=== PATIENT | male | born 1970 | race Caucasian/White ===

== ENCOUNTER 2017-06-23 13:34 | Inpatient (IN) | payer OTHER ==
[2017-06-23 14:59] VITALS: BMI 28.9
--- NOTE | 2017-06-23 19:44 | HP ---
Admission [facility] Allergies/Adverse Reactions: Allergies Allergy/AdvReac Type Severity Reaction Status Date / Time No Known Allergies Allergy Verified 06/23/17 16:00 - Ebola screening Have you traveled outside of the country in the last 21 days: No Have you had contact with anyone from an Ebola affected area: No Have you been sick,other than usual withdrawal symptoms: Yes Do you have a fever: No Patient History - Patient Medical History Hx Anemia: No Hx Asthma: No Hx Chronic Obstructive Pulmonary Disease (COPD): No Hx Cancer: No Hx Cardiac Disorders: No Hx Congestive Heart Failure: No Hx Hypertension: No Hx Hypercholesterolemia: No Hx Pacemaker: No HX Cerebrovascular Accident: No Hx Seizures: No Hx Dementia: No Hx Diabetes: No Hx Gastrointestinal Disorders: No Hx Liver Disease: No Hx Genitourinary Disorders: No Hx Sexually Transmitted Disorders: No Hx Renal Disease (ESRD): No Hx Thyroid Disease: No Hx Human Immunodeficiency Virus (HIV): No (2012 last) Hx Hepatitis C: Yes Hx Depression: No Hx Suicide Attempt: No Hx Bipolar Disorder: No Hx Schizophrenia: No - Patient Surgical History Past Surgical History: No Hx Neurologic Surgery: No Hx Cataract Extraction: No Hx Cardiac Surgery: No Hx Lung Surgery: No Hx Breast Surgery: No Hx Breast Biopsy: No Hx Abdominal Surgery: No Hx Appendectomy: No Hx Cholecystectomy: No Hx Genitourinary Surgery: No Hx Section: No Hx Orthopedic Surgery: No Anesthesia Reaction: No - PPD History Previous Implant?: Yes Documented Results: Negative w/proof Implanted On Prior [facility] Admission?: Yes Date: 08/03/13 Results: 0 mm - Smoking Cessation Smoking history: Current every day smoker Have you smoked in the past 12 months: Yes Aproximately how many cigarettes per day: 10 Cigars Per Day: 0 Hx Chewing Tobacco Use: No - Substances Abused Heroin Route: Injection Frequency: Daily Amount used: 10 bags Age of first use: 30 Date of Last Use: 06/23/17 Alcohol-sana/wine Route: Oral Frequency: Daily Amount used: 1 pt. Age of first use: 19 Date of Last Use: 06/22/17 Marijuana Route: Smoking Frequency: 1-2 times per week Amount used: $10 Age of first use: 13 Date of Last Use: 06/09/17 Family Disease History - Family Disease History Family Disease History: Other: Father (alcohol,) Admission Physical Exam BHS - Vital Signs Vital Signs: Vital Signs - 24 hr 06/23/17 06/23/17 14:43 17:17 Temperature 97.7 F 97.9 F Pulse Rate 57 L 86 Respiratory 18 20 Rate Blood Pressure 133/85 129/76 BHS Breath Alcohol Content Breath Alcohol Content: 0 Urine Drug Screen - Results Drug Screen Negative: No Urine Drug Screen Results: THC-Marijuana, OPI-Opiates, OXY-Oxycodone
--- NOTE | 2017-06-23 20:16 | HP ---
COWS - Scale Resting Pulse: 0= [place] 80 or Below Sweatin=Flushed/Facial Moisture Restless Observation: 5= Unable to Sit Still Pupil Size: 1= Pupils >than Normal Bone or Joint Aches: 1= Mild Discomfort Runny Nose/ Eye Tearin= Nasal Congestion GI Upset > 30mins: 2= Nausea/Diarrhea Tremor Observation: 1= Tremor [place], Not Seen Yawning Observation: 0= None Anxiety or Irritability: 2=Irritable/Anxious Goose Flesh Skin: 0=Smooth Skin COWS Score: 15 CIWA Score - CIWA Score Nausea/Vomitin-Mild Nausea/No Vomiting Muscle Tremors: 3 Anxiety: 4-Mod. Anxious/Guarded Agitation: 4-Moderately Restless Paroxysmal Sweats: 3 Orientation: 0-Oriented Tacttile Disturbances: 2-Mild Itch/Numbness/Burn Auditory Disturbances: 0-None Visual Disturbances: 0-None Headache: 0-None Present CIWA-Ar Total Score: 17 Admission ROS BHS - HPI Chief Complaint: C/O WITHDRAWAL SX'S. SEEKING DETOX TXMENT Allergies/Adverse Reactions: Allergies Allergy/AdvReac Type Severity Reaction Status Date / Time No Known Allergies Allergy Verified 06/23/17 16:00 History of Present Illness: 47 Y.O. MALE WITH ALCOHOLISM AND OPIOID DEPENDENCE HERE FOR DETOX. CLIENT IS KNOWN TO THIS PROGRAM. LAST DETOX 4 YEARS AGO. SELF REFERRED. REPORTS LONGEST CLEAN TIME 1 YEAR Exam Limitations: No Limitations - Ebola screening Have you traveled outside of the country in the last 21 days: No Have you had contact with anyone from an Ebola affected area: No Have you been sick,other than usual withdrawal symptoms: Yes Do you have a fever: No - Review of Systems Constitutional: Chills, Loss of Appetite, Malaise, Night Sweats, Changes in sleep EENT: reports: Nose Congestion Respiratory: reports: No Symptoms reported Cardiac: reports: No Symptoms Reported GI: reports: Nausea, Poor Appetite, Poor Fluid Intake : reports: No Symptoms Reported Musculoskeletal: reports: Joint Pain Integumentary: reports: No Symptoms Reported Neuro: reports: No Symptoms reported Endocrine: reports: No Symptoms Reported Hematology: reports: No Symptoms Reported Psychiatric: reports: Anxious Other Systems: Reviewed and Negative Patient History - Patient Medical History Hx Anemia: No Hx Asthma: No Hx Chronic Obstructive Pulmonary Disease (COPD): No Hx Cancer: No Hx Cardiac Disorders: No Hx Congestive Heart Failure: No Hx Hypertension: No Hx Hypercholesterolemia: No Hx Pacemaker: No HX Cerebrovascular Accident: No Hx Seizures: No Hx Dementia: No Hx Diabetes: No Hx Gastrointestinal Disorders: No Hx Liver Disease: No Hx Genitourinary Disorders: No Hx Sexually Transmitted Disorders: No Hx Renal Disease (ESRD): No Hx Thyroid Disease: No Hx Human Immunodeficiency Virus (HIV): No Hx Hepatitis C: Yes (NO TXMENT) Hx Depression: No Hx Suicide Attempt: No Hx Bipolar Disorder: No Hx Schizophrenia: No Other Medical History: FEELS DEPRESSED DENIES SI/HI - Patient Surgical History Past Surgical History: No Hx Neurologic Surgery: No Hx Cataract Extraction: No Hx Cardiac Surgery: No Hx Lung Surgery: No Hx Breast Surgery: No Hx Breast Biopsy: No Hx Abdominal Surgery: No Hx Appendectomy: No Hx Cholecystectomy: No Hx Genitourinary Surgery: No Hx Section: No Hx Orthopedic Surgery: No Anesthesia Reaction: No - PPD History Previous Implant?: Yes Documented Results: Negative w/proof Implanted On Prior [facility] Admission?: Yes Date: 08/03/13 Results: 0 mm PPD to be Administered?: Yes - Smoking Cessation Smoking history: Current every day smoker Have you smoked in the past 12 months: Yes Aproximately how many cigarettes per day: 2 Cigars Per Day: 0 Hx Chewing Tobacco Use: No Initiated information on smoking cessation: Yes 'Breaking Loose' booklet given: 06/23/17 - Substance & Tx. History Hx Alcohol Use: Yes Hx Substance Use: Yes Substance Use Type: Alcohol, Heroin, Marijuana Hx Substance Use Treatment: Yes ([facility]) - Substances Abused Heroin Route: Injection Frequency: Daily Amount used: 10 bags Age of first use: 30 Date of Last Use: 06/23/17 Alcohol-sana/wine Route: Oral Frequency: Daily Amount used: 1 pt. Age of first use: 19 Date of Last Use: 06/22/17 Marijuana Route: Smoking Frequency: 1-2 times per week Amount used: $10 Age of first use: 13 Date of Last Use: 06/09/17 Family Disease History - Family Disease History Family Disease History: Other: Father (alcohol,) Admission Physical Exam BHS - Vital Signs Vital Signs: Vital Signs - 24 hr 06/23/17 06/23/17 14:43 17:17 Temperature 97.7 F 97.9 F Pulse Rate 57 L 86 Respiratory 18 20 Rate Blood Pressure 133/85 129/76 - Physical General Appearance: Yes: Appropriately Dressed, Mild Distress, Tremorous, Anxious HEENTM: Yes: EOMI, Normocephalic, Normal Voice, YADIEL, Pharynx Normal, Nasal Congestion Respiratory: Yes: Chest Non-Tender, Lungs Clear, Normal Breath Sounds, No Respiratory Distress, No Accessory Muscle Use Neck: Yes: No masses,lesions,Nodules, Supple, Trachea in good position Breast: Yes: Breast Exam Deferred Cardiology: Yes: Regular Rhythm, Regular Rate, S1, S2 Abdominal: Yes: Normal Bowel Sounds, Non Tender, Soft Genitourinary: Yes: Within Normal Limits Back: Yes: Normal Inspection Musculoskeletal: Yes: full range of Motion, Gait Steady Extremities: Yes: Normal Capillary Refill, Normal Range of Motion, Non-Tender, Tremors Neurological: Yes: estimation manager II-XII NML intact, Fully Oriented, Alert, Motor Strength 5/5 Integumentary: Yes: Normal Color, Dry, Warm Lymphatic: Yes: Within Normal Limits - Diagnostic (1) Alcohol dependence with uncomplicated withdrawal Current Visit: Yes Status: Chronic (2) Opioid dependence with withdrawal Current Visit: Yes Status: Chronic (3) Cannabis dependence, uncomplicated Current Visit: Yes Status: Chronic (4) Nicotine dependence Current Visit: Yes Status: Chronic Qualifiers: Nicotine product type: cigarettes Substance use status: uncomplicated Qualified Code(s): F17.210 - Nicotine dependence, cigarettes, uncomplicated (5) Hep C w/o coma, chronic Current Visit: Yes Status: Chronic Cleared for Admission [facility] - Detox or Rehab [facility] Level of Care: Medically Managed Detox Regimen/Protocol: Methadone/Librium [facility] Breath Alcohol Content Breath Alcohol Content: 0 Urine Drug Screen - Results Drug Screen Negative: No Urine Drug Screen Results: THC-Marijuana, OPI-Opiates, OXY-Oxycodone
[2017-06-23] MEDS ORDERED: P-EPHED 60MG/TRIPROLIDI 2.5MG TABLET PO PRN (20:22)
[2017-06-23] MEDS ORDERED: MAGNESIUM CITRATE 300 ML BOTTLE PO PRN (20:22)
[2017-06-23] MEDS ORDERED: METHADONE HCL 10 MG TABLET (FOR DETOX USE ONLY) PO ONE ×2 (20:22→23:00)
[2017-06-23] MEDS ORDERED: MENTHOL/PHENOL 1 EACH UD MM PRN (20:22)
[2017-06-23] MEDS ORDERED: hydrOXYzine PAMOATE 50 MG CAPSULE (FP) PO PRN (20:22)
[2017-06-23] MEDS ORDERED: LOPERAMIDE HCL 2 MG CAPSULE PO PRN (20:22)
[2017-06-23] MEDS ORDERED: guaiFENesin/D-METHORPHAN HB 10 ML UNIT-DOSE CUPS PO PRN (20:22)
[2017-06-23] MEDS ORDERED: chlordiazePOXIDE HCL 25 MG CAPSULE PO PRN (20:22)
[2017-06-23] MEDS ORDERED: NICOTINE POLACRILEX 2 MG GUM BC PRN (20:22)
[2017-06-23] MEDS ORDERED: MAGNESIUM HYDROX 2400MG/30ML ORAL SUSPENSION 30 ML CUP PO PRN (20:22)
[2017-06-23] MEDS ORDERED: ACETAMINOPHEN 325 MG TABLET (FP) PO PRN (20:22)
[2017-06-23] MEDS ORDERED: IBUPROFEN 400 MG TABLET (FP) PO PRN (20:22)
[2017-06-23] MEDS ORDERED: MAG HYDROX/AL HYDROX/SIMETH 30 ML UNIT-DOSE CUP PO PRN (20:22)
[2017-06-23] MEDS: THIAMINE HCL 100 MG TABLET (FP) PO SCH (21:24)
[2017-06-23] MEDS: chlordiazePOXIDE HCL 25 MG CAPSULE PO SCH (23:22)
[2017-06-24 04:53] LABS: URINE APPEARANCE CLEAR; URINE BILIRUBIN NEGATIVE (NEGATIVE); URINE BLOOD NEGATIVE (NEGATIVE); URINE COLOR YELLOW; URINE GLUCOSE (UA) NEGATIVE (NEGATIVE); URINE KETONE NEGATIVE (NEGATIVE); URINE LEUK ESTERASE NEGATIVE (NEGATIVE); URINE NITRITE NEGATIVE (NEGATIVE); URINE PROTEIN NEGATIVE (NEGATIVE); URINE UROBILINOGEN NEGATIVE mg/dL (0.2-1.0)
[2017-06-24] MEDS: chlordiazePOXIDE HCL 25 MG CAPSULE PO SCH ×4 (05:16→22:07)
[2017-06-24] MEDS ORDERED: METHADONE HCL 10 MG TABLET (FOR DETOX USE ONLY) PO SCH (10:00)
[2017-06-24] MEDS: PRENATAL VITAMINS W/ FOLIC ACID TABLET (FP) PO SCH (10:16)
[2017-06-24 10:17] LABS: HEMATOCRIT 46.1 % (35.4-49); HEMOGLOBIN 15.1 GM/dL (11.7-16.9); MCHC 32.6 g/dl (32.0-35.9); MEAN PLT VOLUME 7.9 fl (7.5-11.1); PLATELET COUNT 268 K/MM3 (134-434); RBC 4.71 M/mm3 (4.00-5.60); RDW 13.5 % (11.9-15.9); WHITE BLOOD COUNT 7.6 K/mm3 (4.0-10.0)
[2017-06-24] MEDS: NICOTINE 14 MG/24 HOURS TOPICAL PATCH TD SCH (10:18)
[2017-06-24 10:20] LABS: CHLORIDE 106 mmol/L (98-107); POTASSIUM 4.3 mmol/L (3.5-5.1); SODIUM 140 mmol/L (136-145)
[2017-06-24 10:34] LABS: ALBUMIN 3.6 g/dl (3.4-5.0); ALK PHOS 76 U/L (45-117); ANION GAP 5 (8-16); BILIRUBIN,TOTAL 0.7 mg/dL (0.2-1.0); BLOOD UREA NITROGEN 11 mg/dL (7-18); CALCIUM 8.9 mg/dL (8.5-10.1); CO2 29 mmol/L (21-32); CREATININE 0.9 mg/dL (0.7-1.3); GLUCOSE,RANDOM 93 mg/dL (74-106); SGOT/AST 15 U/L (15-37); SGPT/ALT 23 U/L (12-78); TOT PROT 6.5 g/dl (6.4-8.2)
--- NOTE | 2017-06-24 11:26 | EKG ---
Test Reason : Blood Pressure : / mmHG Vent. Rate : 054 BPM Atrial Rate : 054 BPM P-R Int : 124 ms QRS Dur : 098 ms QT Int : 414 ms P-R-T Axes : 059 066 051 degrees QTc Int : 392 ms SINUS BRADYCARDIA OTHERWISE NORMAL ECG NO PREVIOUS ECGS AVAILABLE Confirmed by KRISTYN COX, JOHANNA ([id number]) on 06/24/2017 11:26:39 AM Referred By: Confirmed By:JOHANNA SIMONS MD
--- NOTE | 2017-06-24 12:50 | PN ---
[facility] CIWA - CIWA Score Nausea/Vomitin-Mild Nausea/No Vomiting Muscle Tremors: 2 Anxiety: 2 Agitation: 2 Paroxysmal Sweats: 2 Orientation: 0-Oriented Tacttile Disturbances: 0-None Auditory Disturbances: 0-None Visual Disturbances: 0-None Headache: 0-None Present CIWA-Ar Total Score: 9 S COWS - Scale Resting Pulse: 0= [place] 80 or Below Sweatin=Flushed/Facial Moisture Restless Observation: 1= Difficult to Sit Still Pupil Size: 1= Pupils >than Normal Bone or Joint Aches: 1= Mild Discomfort Runny Nose/ Eye Tearin= Runny Nose/Eyes GI Upset > 30mins: 1= Stomach Cramp Tremor Observation of Outstretched Hands: 1= Tremor [place], Not Seen Yawning Observation: 0= None Anxiety or Irritability: 2=Irritable/Anxious Goose Flesh Skin: 0=Smooth Skin COWS Score: 11 S Progress Note (SOAP) Subjective: Sweating, midly anxious, withdrawal sx Objective: 06/24/17 12:53 In bed, no acute distress, slight anxiety/agitation Vital Signs Temperature 96.8 F L 06/24/17 10:00 Pulse Rate 77 06/24/17 10:00 Respiratory Rate 18 06/24/17 10:00 Blood Pressure 112/76 06/24/17 10:00 O2 Sat by Pulse Oximetry (%) Laboratory Last Values WBC 7.6 K/mm3 (4.0-10.0) 06/24/17 08:00 RBC 4.71 M/mm3 (4.00-5.60) 06/24/17 08:00 Hgb 15.1 GM/dL (11.7-16.9) 06/24/17 08:00 Hct 46.1 % (35.4-49) 06/24/17 08:00 MCV 98.0 fl (80-96) H 06/24/17 08:00 MCH 32.0 pg (25.7-33.7) 06/24/17 08:00 MCHC 32.6 g/dl (32.0-35.9) 06/24/17 08:00 RDW 13.5 % (11.9-15.9) 06/24/17 08:00 Plt Count 268 K/MM3 (134-434) D 06/24/17 08:00 MPV 7.9 fl (7.5-11.1) 06/24/17 08:00 Sodium 140 mmol/L (136-145) 06/24/17 08:00 Potassium 4.3 mmol/L (3.5-5.1) 06/24/17 08:00 Chloride 106 mmol/L (98-107) 06/24/17 08:00 Carbon Dioxide 29 mmol/L (21-32) D 06/24/17 08:00 Anion Gap 5 (8-16) L 06/24/17 08:00 BUN 11 mg/dL (7-18) 06/24/17 08:00 Creatinine 0.9 mg/dL (0.7-1.3) D 06/24/17 08:00 Creat Clearance w eGFR > 60 (>60) 06/24/17 08:00 Random Glucose 93 mg/dL (74-106) 06/24/17 08:00 Calcium 8.9 mg/dL (8.5-10.1) 06/24/17 08:00 Total Bilirubin 0.7 mg/dL (0.2-1.0) D 06/24/17 08:00 AST 15 U/L (15-37) 06/24/17 08:00 ALT 23 U/L (12-78) 06/24/17 08:00 Alkaline Phosphatase 76 U/L (45-117) 06/24/17 08:00 Total Protein 6.5 g/dl (6.4-8.2) 06/24/17 08:00 Albumin 3.6 g/dl (3.4-5.0) 06/24/17 08:00 Urine Color Yellow 06/24/17 04:35 Urine Appearance Clear 06/24/17 04:35 Urine pH 6.0 (5.0-8.0) 06/24/17 04:35 Ur Specific [place] 1.018 (1.001-1.035) 06/24/17 04:35 Urine Protein Negative (NEGATIVE) 06/24/17 04:35 Urine Glucose (UA) Negative (NEGATIVE) 06/24/17 04:35 Urine Ketones Negative (NEGATIVE) 06/24/17 04:35 Urine Blood Negative (NEGATIVE) 06/24/17 04:35 Urine Nitrite Negative (NEGATIVE) 06/24/17 04:35 Urine Bilirubin Negative (NEGATIVE) 06/24/17 04:35 Urine Urobilinogen Negative mg/dL (0.2-1.0) 06/24/17 04:35 Ur Leukocyte Esterase Negative (NEGATIVE) 06/24/17 04:35 RPR Titer Nonreactive (NONREACTIVE) 06/24/17 08:00 Labs noted Assessment: 06/24/17 12:56 Withdrawal sx Plan: Continue detox
--- NOTE | 2017-06-24 16:49 | CONSULT ---
[facility] Psychiatric Consult - Data Date of interview: 06/24/17 Admission source: [facility] Identifying data: Readmission to [facility] for this 47 y/o male seeking detox treatment on for alcohol,heroin and cannabis dependence.Patient is in a 18-year common-law relationship,father of two, domiciled,currently unemployed and supported by friends/relatives. Substance Abuse History: Patient confirms continuous use of heroin,cannabis and alcohol.See current [facility] report for details : Smoking history: Current every day smoker. Have you smoked in the past 12 months: Yes. Aproximately how many cigarettes per day: 2. Cigars Per Day: 0. Hx Chewing Tobacco Use: No. Initiated information on smoking cessation: Yes. 'Breaking Loose' booklet given : 06/23/17. - Substance & Tx. History. Hx Alcohol Use: Yes. Hx Substance Use : Yes. Substance Use Type: Alcohol, Heroin, Marijuana. Hx Substance Use Treatment: Yes ([facility] - Substances Abused. Heroin. Route: Injection. Frequency: Daily. Amount used: 10 bags. Age of first use: 30. Date of Last Use: 06/23/17. Alcohol-sana/wine. Route: Oral. Frequency: Daily. Amount used: 1 pt. Age of first use: 19. Date of Last Use: 06/22/17. Marijuana. Route: Smoking. Frequency: 1-2 times per week. Amount used: $10. Age of first use: 13. Date of Last Use: 06/09/17 Medical History: Hepatitis C. Psychiatric History: Patient denies. Physical/Sexual Abuse/Trauma History: Patient denies. Additional Comment: Urine Drug Screen Results: THC-Marijuana, OPI-Opiates, OXY- Oxycodone.Noted. Mental Status Exam - Mental Status Exam Alert and Oriented to: Time, Place, Person Cognitive Function: Good Patient Appearance: Well Groomed Mood: Hopeful, Euthymic Affect: Appropriate, Normal Range Patient Behavior: Appropriate, Cooperative Speech Pattern: Clear, Appropriate Voice Loudness: Normal Thought Process: Intact, Goal Oriented Thought Disorder: Not Present Hallucinations: Denies Suicidal Ideation: Denies Homicidal Ideation: Denies Insight/Judgement: Poor Sleep: Poorly, Difficulty falling asleep Appetite: Good Muscle strength/Tone: Normal Gait/Station: Normal Psychiatric Findings - Problem List ([place] 1, 2,3) (1) Alcohol dependence with uncomplicated withdrawal Current Visit: Yes Status: Acute (2) Opioid dependence with withdrawal Current Visit: Yes Status: Acute (3) Cannabis dependence, uncomplicated Current Visit: Yes Status: Acute (4) Nicotine dependence Current Visit: Yes Status: Acute Qualifiers: Nicotine product type: cigarettes Substance use status: uncomplicated Qualified Code(s): F17.210 - Nicotine dependence, cigarettes, uncomplicated (5) Insomnia Current Visit: Yes Status: Acute - Initial Treatment Plan Initial Treatment Plan: Psychoeducation and support.Sleep hygiene.Detoxification in effect.Ambien 10 mg po hs prn.patient is made aware of potential for parasomnias.Mr Wisdom consents (verbally) to follow this careplan.Observation.
[2017-06-24] MEDS: THIAMINE HCL 100 MG TABLET (FP) PO SCH (22:07)
[2017-06-24] MEDS: ZOLPIDEM TARTRATE 10 MG TABLET (PARK CARE ONLY) PO PRN (22:07)
[2017-06-25] MEDS: chlordiazePOXIDE HCL 25 MG CAPSULE PO SCH ×3 (05:33→17:53)
[2017-06-25] MEDS ORDERED: METHADONE HCL 5 MG TABLET (FOR DETOX USE ONLY) PO SCH (10:00)
[2017-06-25] MEDS: PRENATAL VITAMINS W/ FOLIC ACID TABLET (FP) PO SCH (10:10)
[2017-06-25] MEDS: NICOTINE 14 MG/24 HOURS TOPICAL PATCH TD SCH (10:12)
--- NOTE | 2017-06-25 13:38 | PN ---
[facility] CIWA - CIWA Score Nausea/Vomitin Muscle Tremors: 3 Anxiety: 3 Agitation: 3 Paroxysmal Sweats: 1-Minimal Palms Moist Orientation: 0-Oriented Tacttile Disturbances: 0-None Auditory Disturbances: 0-None Visual Disturbances: 0-None Headache: 0-None Present CIWA-Ar Total Score: 12 S COWS - Scale Resting Pulse: 1= [place] 81-100 Sweatin=Flushed/Facial Moisture Restless Observation: 0= Sits Still Pupil Size: 0= Normal to Room Light Bone or Joint Aches: 1= Mild Discomfort Runny Nose/ Eye Tearin= Nasal Congestion GI Upset > 30mins: 0= None Tremor Observation of Outstretched Hands: 2= Slight Tremor Visible Yawning Observation: 0= None Anxiety or Irritability: 2=Irritable/Anxious Goose Flesh Skin: 0=Smooth Skin COWS Score: 9 [facility] Progress Note (SOAP) Subjective: withdrawal sx tremors, night sweats Objective: 06/25/17 13:36 Vital Signs Temperature 97.0 F L 06/25/17 09:36 Pulse Rate 87 06/25/17 09:36 Respiratory Rate 18 06/25/17 09:36 Blood Pressure 109/69 06/25/17 09:36 O2 Sat by Pulse Oximetry (%) Laboratory Last Values WBC 7.6 K/mm3 (4.0-10.0) 06/24/17 08:00 RBC 4.71 M/mm3 (4.00-5.60) 06/24/17 08:00 Hgb 15.1 GM/dL (11.7-16.9) 06/24/17 08:00 Hct 46.1 % (35.4-49) 06/24/17 08:00 MCV 98.0 fl (80-96) H 06/24/17 08:00 MCH 32.0 pg (25.7-33.7) 06/24/17 08:00 MCHC 32.6 g/dl (32.0-35.9) 06/24/17 08:00 RDW 13.5 % (11.9-15.9) 06/24/17 08:00 Plt Count 268 K/MM3 (134-434) D 06/24/17 08:00 MPV 7.9 fl (7.5-11.1) 06/24/17 08:00 Sodium 140 mmol/L (136-145) 06/24/17 08:00 Potassium 4.3 mmol/L (3.5-5.1) 06/24/17 08:00 Chloride 106 mmol/L (98-107) 06/24/17 08:00 Carbon Dioxide 29 mmol/L (21-32) D 06/24/17 08:00 Anion Gap 5 (8-16) L 06/24/17 08:00 BUN 11 mg/dL (7-18) 06/24/17 08:00 Creatinine 0.9 mg/dL (0.7-1.3) D 06/24/17 08:00 Creat Clearance w eGFR > 60 (>60) 06/24/17 08:00 Random Glucose 93 mg/dL (74-106) 06/24/17 08:00 Calcium 8.9 mg/dL (8.5-10.1) 06/24/17 08:00 Total Bilirubin 0.7 mg/dL (0.2-1.0) D 06/24/17 08:00 AST 15 U/L (15-37) 06/24/17 08:00 ALT 23 U/L (12-78) 06/24/17 08:00 Alkaline Phosphatase 76 U/L (45-117) 06/24/17 08:00 Total Protein 6.5 g/dl (6.4-8.2) 06/24/17 08:00 Albumin 3.6 g/dl (3.4-5.0) 06/24/17 08:00 Urine Color Yellow 06/24/17 04:35 Urine Appearance Clear 06/24/17 04:35 Urine pH 6.0 (5.0-8.0) 06/24/17 04:35 Ur Specific [place] 1.018 (1.001-1.035) 06/24/17 04:35 Urine Protein Negative (NEGATIVE) 06/24/17 04:35 Urine Glucose (UA) Negative (NEGATIVE) 06/24/17 04:35 Urine Ketones Negative (NEGATIVE) 06/24/17 04:35 Urine Blood Negative (NEGATIVE) 06/24/17 04:35 Urine Nitrite Negative (NEGATIVE) 06/24/17 04:35 Urine Bilirubin Negative (NEGATIVE) 06/24/17 04:35 Urine Urobilinogen Negative mg/dL (0.2-1.0) 06/24/17 04:35 Ur Leukocyte Esterase Negative (NEGATIVE) 06/24/17 04:35 RPR Titer Nonreactive (NONREACTIVE) 06/24/17 08:00 labs noted Assessment: 06/25/17 13:37 withdrawal sx Not in acute distress Plan: continue detox
[2017-06-25] MEDS: THIAMINE HCL 100 MG TABLET (FP) PO SCH (22:05)
[2017-06-25] MEDS: ZOLPIDEM TARTRATE 10 MG TABLET (PARK CARE ONLY) PO PRN (22:05)
[2017-06-25] MEDS: chlordiazePOXIDE 5 MG CAPSULE PO SCH (22:05)
[2017-06-26] MEDS: chlordiazePOXIDE 5 MG CAPSULE PO SCH (05:37)
[2017-06-26 06:29] VITALS: BP 94/75; PULSE 73; TEMP 97.7
--- NOTE | 2017-06-26 09:17 | PN ---
[facility] Progress Note (SOAP) Subjective: ALERT,IRRITABLE,ANXIOUS,INTERRUPTED SLEEP,PAIN IN THE BODY AND BACK Objective: 06/26/17 09:16 Vital Signs Temperature 97.7 F 06/26/17 06:00 Pulse Rate 73 06/26/17 06:00 Respiratory Rate 18 06/26/17 06:00 Blood Pressure 94/75 06/26/17 06:00 O2 Sat by Pulse Oximetry (%) 06/26/17 09:16 Laboratory Last Values WBC 7.6 K/mm3 (4.0-10.0) 06/24/17 08:00 RBC 4.71 M/mm3 (4.00-5.60) 06/24/17 08:00 Hgb 15.1 GM/dL (11.7-16.9) 06/24/17 08:00 Hct 46.1 % (35.4-49) 06/24/17 08:00 MCV 98.0 fl (80-96) H 06/24/17 08:00 MCH 32.0 pg (25.7-33.7) 06/24/17 08:00 MCHC 32.6 g/dl (32.0-35.9) 06/24/17 08:00 RDW 13.5 % (11.9-15.9) 06/24/17 08:00 Plt Count 268 K/MM3 (134-434) D 06/24/17 08:00 MPV 7.9 fl (7.5-11.1) 06/24/17 08:00 Sodium 140 mmol/L (136-145) 06/24/17 08:00 Potassium 4.3 mmol/L (3.5-5.1) 06/24/17 08:00 Chloride 106 mmol/L (98-107) 06/24/17 08:00 Carbon Dioxide 29 mmol/L (21-32) D 06/24/17 08:00 Anion Gap 5 (8-16) L 06/24/17 08:00 BUN 11 mg/dL (7-18) 06/24/17 08:00 Creatinine 0.9 mg/dL (0.7-1.3) D 06/24/17 08:00 Creat Clearance w eGFR > 60 (>60) 06/24/17 08:00 Random Glucose 93 mg/dL (74-106) 06/24/17 08:00 Calcium 8.9 mg/dL (8.5-10.1) 06/24/17 08:00 Total Bilirubin 0.7 mg/dL (0.2-1.0) D 06/24/17 08:00 AST 15 U/L (15-37) 06/24/17 08:00 ALT 23 U/L (12-78) 06/24/17 08:00 Alkaline Phosphatase 76 U/L (45-117) 06/24/17 08:00 Total Protein 6.5 g/dl (6.4-8.2) 06/24/17 08:00 Albumin 3.6 g/dl (3.4-5.0) 06/24/17 08:00 Urine Color Yellow 06/24/17 04:35 Urine Appearance Clear 06/24/17 04:35 Urine pH 6.0 (5.0-8.0) 06/24/17 04:35 Ur Specific [place] 1.018 (1.001-1.035) 06/24/17 04:35 Urine Protein Negative (NEGATIVE) 06/24/17 04:35 Urine Glucose (UA) Negative (NEGATIVE) 06/24/17 04:35 Urine Ketones Negative (NEGATIVE) 06/24/17 04:35 Urine Blood Negative (NEGATIVE) 06/24/17 04:35 Urine Nitrite Negative (NEGATIVE) 06/24/17 04:35 Urine Bilirubin Negative (NEGATIVE) 06/24/17 04:35 Urine Urobilinogen Negative mg/dL (0.2-1.0) 06/24/17 04:35 Ur Leukocyte Esterase Negative (NEGATIVE) 06/24/17 04:35 RPR Titer Nonreactive (NONREACTIVE) 06/24/17 08:00 Assessment: 06/26/17 09:16 WITHDRAWAL SYMPTOM Plan: CONTINUE DETOX
--- NOTE | 2017-06-26 09:18 | PN ---
S Progress Note Note: PATIENT DID NOT WANT TO COMPLETE TREATMENT,SIGNED RELEASE AMA,SEEN BY COUNSELOR
--- NOTE | 2017-06-26 09:21 | DS ---
[facility] Detox Discharge Summary Admission Date: 06/23/17 Discharge Date: 06/26/17 - History Present History: Alcohol Dependence, Cannabis Dependence, Opioid Dependence Additional Comments: PATIENT SIGNED RELEASE AMA,DID NOT WANT TO COMPLETE TREATMENT,SEEN BY COUNSELOR - Physical Exam Results Vital Signs: Vital Signs Temperature 97.7 F 06/26/17 06:00 Pulse Rate 73 06/26/17 06:00 Respiratory Rate 18 06/26/17 06:00 Blood Pressure 94/75 06/26/17 06:00 O2 Sat by Pulse Oximetry (%) Pertinent Admission Physical Exam Findings: WITHDRAWAL SYMPTOM - Medication Discharge Medications: Ambulatory Orders NK [No Known Home Medication] 08/01/13 - Diagnosis (1) Opioid dependence with withdrawal Current Visit: Yes Status: Acute (2) Hepatitis C Current Visit: Yes Status: Acute (3) Alcohol dependence with uncomplicated withdrawal Current Visit: Yes Status: Acute (4) Cannabis dependence, uncomplicated Current Visit: Yes Status: Acute (5) Nicotine dependence Current Visit: Yes Status: Acute Qualifiers: Nicotine product type: cigarettes Substance use status: uncomplicated Qualified Code(s): F17.210 - Nicotine dependence, cigarettes, uncomplicated - AMA Did Patient Leave Against Medical Advice: Yes
[2017-06-26] MEDS ORDERED: chlordiazePOXIDE HCL 10 MG CAPSULE PO SCH (23:00)
[2017-06-27] MEDS ORDERED: METHADONE HCL 10 MG TABLET (FOR DETOX USE ONLY) PO SCH (10:00)
[2017-06-28] MEDS ORDERED: METHADONE HCL 5 MG TABLET (FOR DETOX USE ONLY) PO SCH (06:00)
== END 2017-06-26 09:29 | disposition left against medical advice (07) | DRG 770 ==
LOC: YASAS 13:34 → Y6N 16:37
PROVIDERS: ADMIT Internal Medicine; ATTEND Internal Medicine
PROC: HZ2ZZZZ Detoxification Services for Substance Abuse Treatment (ICD-10-PCS; principal; 2017-06-23)
DX: F11.23 Opioid dependence with withdrawal (principal); F10.230 Alcohol dependence with withdrawal, uncomplicated; F12.20 Cannabis dependence, uncomplicated; F17.210 Nicotine dependence, cigarettes, uncomplicated; G47.00 Insomnia, unspecified; B18.2 Chronic viral hepatitis C
CPT/HCPCS: 36415; 80053; 81003; 85027; 86593; 93005; 93010

== ENCOUNTER 2020-02-28 09:31 | Emergency (ER) | payer OTHER ==
[2020-02-28 09:37] VITALS: BP 138/86; PULSE 66; TEMP 98.2; BMI 27.9
[2020-02-28] MEDS ORDERED: TETRACAINE 0.5% OPHTH SOLN 2 ML BOTTLE ONE (10:52)
--- NOTE | 2020-02-28 10:58 | PDOC ---
History of Present Illness - General Chief Complaint: Eye Problem Stated Complaint: RT EYE PAIN (IRRITATION) Time Seen by Provider: 02/28/20 10:40 History Source: Patient Past History - Medical History Allergies/Adverse Reactions: Allergies Allergy/AdvReac Type Severity Reaction Status Date / Time No Known Allergies Allergy Verified 02/28/20 09:34 Home Medications: Ambulatory Orders Erythromycin 0.5% Eye Ointment [Erythromycin 0.5% Eye Ointment -] 0.5 inch OD ASDIR #1 tube 02/28/20 Anemia: No Asthma: No Cancer: No Cardiac Disorders: No CVA: No COPD: No CHF: No Dementia: No Diabetes: No GI Disorders: No Disorders: No HTN: No Hypercholesterolemia: No Kidney Stones: No Liver Disease: No Seizures: No Thyroid Disease: No - Surgical History Abdominal Surgery: No Appendectomy: No Cardiac Surgery: No Cholecystectomy: No Lung Surgery: No Neurologic Surgery: No Orthopedic Surgery: No - Reproductive History Testicular Surgery: No - Immunization History Immunization Up to Date: No - Psycho-Social/Smoking History Smoking History: Never smoked Have you smoked in the past 12 months: Yes Number of Cigarettes Smoked Daily: 2 Cigars Per Day: 0 'Breaking Loose' booklet given: 06/23/17 - Substance Abuse Hx (Audit-C & DAST Scrn) How often the patient has a drink containing alcohol: Never Score: In Men: 4 or > Positive; In Women: 3 or > Positive: 0 Screen Result (Pos requires Nsg. Audit-10AR): Negative In the last yr the pt used illegal drug/Rx for NonMed reason: No Score: Yes response is considered Positive: 0 Screen Result (Positive result requires Nsg. DAST-10): Negative Review of Systems - Review of Systems HEENTM: No: Eye Pain, Blurred Vision, Tearing *Physical Exam - Vital Signs Last Vital Signs Temp Pulse Resp BP Pulse Ox 98.2 F 66 18 138/86 100 02/28/20 09:35 02/28/20 09:35 02/28/20 09:35 02/28/20 09:35 02/28/20 09:35 - Physical Exam General Appearance: Yes: Appropriately Dressed. No: Apparent Distress HEENT: positive: Normal Voice, Other (conjunc clear w/ no gross fb on lid eversion, no tearing, ~1-2mm uptake in the 11 0' clock position on garrido lamp) Neck: positive: Supple Respiratory/Chest: negative: Respiratory Distress Integumentary: positive: Dry, Warm Neurologic: positive: Fully Oriented, Alert, Normal Mood/Affect Medical Decision Making - Medical Decision Making 02/28/20 12:20 50-year-old male, here with foreign body sensation to his R eye after repairing roof at home last night. States he was wearing goggles but somehow debris from roof still got into his R eye. Has since flushed and used Visine and reports that over the past several hours he has not had any foreign body sensation. Denies eye pain, photophobia, tearing or visual changes. see exam FB to R eye Since resolved No fb on lid eversion Has ~1-2mm uptake on garrido lamp Dc w/ top abx Tetanus UTD 02/28/20 12:24 Discharge - Discharge Information Problems reviewed: Yes Clinical Impression/Diagnosis: Foreign body, eye Qualifiers: Encounter type: initial encounter Laterality: right Qualified Code(s): T15.91XA - Foreign body on external eye, part unspecified, right eye, initial encounter Condition: Good Disposition: HOME - Additional Discharge Information Prescriptions: Erythromycin 0.5% Eye Ointment [Erythromycin 0.5% Eye Ointment -] 0.5 inch OD ASDIR #1 tube - Follow up/Referral - Patient Discharge Instructions Patient Printed Discharge Instructions: Corneal Abrasion - Post Discharge Activity
== END 2020-02-28 11:08 | disposition home or self-care (01) ==
LOC: JERFT 09:31
DX: T15.91XA Foreign body on external eye, part unspecified, right eye, initial encounter (principal)
CPT/HCPCS: 99283-25